=== PATIENT | female | born 1955 | race Two or more races ===

== ENCOUNTER 2021-01-17 10:47 | Inpatient (IN) | payer OTHER, MEDICAID ==
[~2021-01-17] VITALS: Ht 154.9 cm; Wt 88.6 kg
[2021-01-17] MEDS ORDERED: VANCOMYCIN 1,500 MG in D5W 5% 250 ML IV ONE (13:30)
[2021-01-17] MEDS ORDERED: CEFEPIME 2 GM in SODIUM CHL 0.9% 50 ML IV ONE (13:45)
[2021-01-17 13:47] LABS: Basophils # (auto) 0.1 10 ^3/uL (0-0.2); Basophils % (auto) 0.7 % (0.0-2.0); Eosinophils # (auto) 0.1 10 ^3/uL (0-0.8); Eosinophils % (auto) 1.4 % (0.0-7.0); Hematocrit 37.7 % (36.0-46.0); Hemoglobin 13.1 g/dL (12.2-16.2); Lymphocytes # (auto) 1.6 10 ^3/uL (0.4-5.4); Lymphocytes % (auto) 21.9 % (10.0-50.0); Mean Corpuscular Hemoglobin 31.3 pg (28.0-32.0); Mean Corpuscular Hgb Conc. 34.7 g/dL (32.0-36.0); Mean Corpuscular Volume 90.2 fL (80.0-100.0); Monocytes # (auto) 0.5 10 ^3/uL (0-1.3); Monocytes % (auto) 6.7 % (0.0-12.0); Neutrophils # (auto) 5.1 10 ^3/uL (1.6-8.6); Neutrophils % (auto) 69.3 % (37.0-80.0); Nucleated Red Blood Cells % 0.1 %; Red Blood Cells 4.19 10^6/uL (4.0-5.20); Red Cell Distribution Width 13.6 % (11.8-14.3); White Blood Cell 7.4 10^3/uL (4.4-10.8)
[2021-01-17 14:07] LABS: Albumin 3.7 g/dL (3.4-5.0); Calcium 9.2 mg/dL (8.5-10.1); Potassium 3.5 mmol/L (3.5-5.1)
[2021-01-17 14:10] LABS: BUN/Creatinine Ratio 18.5; Bilirubin, Total 0.4 mg/dL (0.2-1.0); Total Protein 8.6 g/dL (6.4-8.2)
[2021-01-17] MEDS ORDERED: ACETAMINOPHEN 325 MG TAB PO PRN (16:00)
[2021-01-17] MEDS ORDERED: DOCUSATE SOD 100 MG CAP PO PRN (16:00)
[2021-01-17] MEDS ORDERED: VANCOMYCIN PER PHARMACY 0 MG IV SCH (16:00)
[2021-01-17] MEDS ORDERED: NITROGLYCERIN 0.4 MG SL TAB SL PRN (16:00)
[2021-01-17] MEDS ORDERED: MORPHINE SULFATE 4 MG/ML SYR/VIAL IV PRN (16:00)
[2021-01-17] MEDS ORDERED: MORPHINE SULFATE INJECTION 2 MG/ML SYRG IV PRN (16:00)
[2021-01-17] MEDS: HYDROcodone-ACET 5/325MG TAB PO PRN (18:03)
[2021-01-17] MEDS: SODIUM CHLORIDE 0.9% 1,000 ML IV SCH (19:05)
[2021-01-18] MEDS: SODIUM CHLORIDE 0.9% 1,000 ML IV SCH ×4 (04:59→22:01)
[2021-01-18] MEDS: ASCORBIC ACID 500 MG TAB PO SCH ×3 (05:18→21:20)
[2021-01-18] MEDS: VANCOMYCIN 1GM/250ML 250 ML IV SCH ×2 (05:19→17:19)
[2021-01-18 07:50] LABS: Basophils # (auto) 0 10 ^3/uL (0-0.2); Basophils % (auto) 0.6 % (0.0-2.0); Eosinophils # (auto) 0.1 10 ^3/uL (0-0.8); Eosinophils % (auto) 1.8 % (0.0-7.0); Hematocrit 35.9 % (36.0-46.0); Hemoglobin 12.4 g/dL (12.2-16.2); Lymphocytes # (auto) 1.9 10 ^3/uL (0.4-5.4); Lymphocytes % (auto) 28.7 % (10.0-50.0); Mean Corpuscular Hemoglobin 31.4 pg (28.0-32.0); Mean Corpuscular Hgb Conc. 34.6 g/dL (32.0-36.0); Mean Corpuscular Volume 90.9 fL (80.0-100.0); Monocytes # (auto) 0.6 10 ^3/uL (0-1.3); Monocytes % (auto) 9.3 % (0.0-12.0); Neutrophils % (auto) 59.6 % (37.0-80.0); Nucleated Red Blood Cells % 0.1 %; Red Blood Cells 3.95 10^6/uL (4.0-5.20); Red Cell Distribution Width 13.3 % (11.8-14.3); White Blood Cell 6.8 10^3/uL (4.4-10.8)
[2021-01-18 08:02] LABS: Albumin 3.1 g/dL (3.4-5.0); BUN/Creatinine Ratio 17.4; Potassium 3.8 mmol/L (3.5-5.1)
[2021-01-18 08:13] LABS: Bilirubin, Total 0.4 mg/dL (0.2-1.0); Total Protein 7.4 g/dL (6.4-8.2)
[2021-01-18] MEDS: MULTIPLE VITAMIN TAB PO SCH (09:58)
[2021-01-18] MEDS: ZINC SULFATE 220mg CAP or TAB PO SCH (09:58)
[2021-01-18] MEDS: PANTOPRAZOLE 40 MG/10 ML VIAL INJ IV SCH (09:58)
[2021-01-18] MEDS: ENOXAPARIN SOD 40 MG/0.4 ML SYRINGE SC SCH (09:59)
[2021-01-18 11:09] LABS: Urine Bacteria NONE SEEN /hpf (None Seen); Urine Blood Negative /uL (Negative); Urine Specific Gravity 1.007 (1.001-1.035); Urine WBC 1 /hpf (0 - 5)
[2021-01-18] MEDS ORDERED: DEXTROSE (50%) 50ML SYRG IV PRN (17:15)
[2021-01-18] MEDS ORDERED: guaiFENesin-CODEINE Liq 5 ML UD PO PRN (17:15)
[2021-01-18] MEDS: HYDROcodone-ACET 5/325MG TAB PO PRN (17:55)
[2021-01-18] MEDS: InsuLIN REG 1unit/0.01ml Soln (100units/ml) SC SCH (21:19)
[2021-01-18] MEDS: ACCU-CHEK COMFORT CURVE STRIP VI SCH (21:20)
[2021-01-18] MEDS: TEMAZEPAM 15 MG CAP PO PRN (23:15)
[2021-01-19] MEDS: VANCOMYCIN 1GM/250ML 250 ML IV SCH ×2 (05:00→18:20)
[2021-01-19] MEDS: ACCU-CHEK COMFORT CURVE STRIP VI SCH ×4 (06:30→21:04)
[2021-01-19] MEDS: InsuLIN REG 1unit/0.01ml Soln (100units/ml) SC SCH ×5 (06:44→21:05)
[2021-01-19 07:18] LABS: Cholesterol 126 mg/dL (< 200); HDL Cholesterol 32 mg/dL (40-59); LDL Cholesterol 77 mg/dL (< 100); Triglycerides 143 mg/dL (< 150)
[2021-01-19] MEDS: ZINC SULFATE 220mg CAP or TAB PO SCH (10:18)
[2021-01-19] MEDS: SODIUM CHLORIDE 0.9% 1,000 ML IV SCH ×2 (10:18→18:00)
[2021-01-19] MEDS: PANTOPRAZOLE 40 MG/10 ML VIAL INJ IV SCH (10:18)
[2021-01-19] MEDS: ASCORBIC ACID 500 MG TAB PO SCH ×2 (10:19→20:54)
[2021-01-19] MEDS: MULTIPLE VITAMIN TAB PO SCH (10:19)
[2021-01-19] MEDS: ENOXAPARIN SOD 40 MG/0.4 ML SYRINGE SC SCH (10:19)
[2021-01-19 13:00] VITALS: BP 142/77
[2021-01-19] MEDS: metroNIDAZOLE 500 MG TAB PO SCH ×2 (15:00→20:54)
[2021-01-19 17:00] VITALS: BP 153/69
[2021-01-19] MEDS ORDERED: ASPI-543 PO (19:28)
[2021-01-19] MEDS ORDERED: GABA300C10 PO (19:28)
[2021-01-19] MEDS ORDERED: SIMV-8 PO (19:28)
[2021-01-19] MEDS ORDERED: LOSA-69 PO (19:28)
[2021-01-19] MEDS ORDERED: CELE100C82 PO (19:28)
[2021-01-19] MEDS ORDERED: CEPH500C PO (19:28)
[2021-01-19] MEDS ORDERED: METF-370 PO (19:28)
[2021-01-19] MEDS ORDERED: TRIATAB3 PO (19:28)
[2021-01-19] MEDS ORDERED: TRAZ50TA2 PO (19:28)
[2021-01-19] MEDS: TEMAZEPAM 15 MG CAP PO PRN (20:54)
[2021-01-19 22:00] VITALS: BP 133/56
[2021-01-20] MEDS: SODIUM CHLORIDE 0.9% 1,000 ML IV SCH ×3 (02:20→22:26)
[2021-01-20 05:00] VITALS: BP 135/56
[2021-01-20] MEDS: VANCOMYCIN 1GM/250ML 250 ML IV SCH ×2 (05:38→15:38)
[2021-01-20] MEDS: ACCU-CHEK COMFORT CURVE STRIP VI SCH ×4 (05:40→22:00)
[2021-01-20] MEDS: metroNIDAZOLE 500 MG TAB PO SCH ×3 (06:20→22:00)
[2021-01-20] MEDS: InsuLIN REG 1unit/0.01ml Soln (100units/ml) SC SCH ×4 (06:31→22:45)
[2021-01-20 09:00] VITALS: BP 137/61
[2021-01-20] MEDS: cefTRIAXone 1GM/50ML D5W 50 ML IV SCH (09:45)
[2021-01-20] MEDS: PANTOPRAZOLE 40 MG/10 ML VIAL INJ IV SCH (09:45)
[2021-01-20] MEDS: ENOXAPARIN SOD 40 MG/0.4 ML SYRINGE SC SCH (09:46)
[2021-01-20] MEDS: ASCORBIC ACID 500 MG TAB PO SCH ×2 (09:46→22:00)
[2021-01-20] MEDS: MULTIPLE VITAMIN TAB PO SCH (09:46)
[2021-01-20] MEDS: ZINC SULFATE 220mg CAP or TAB PO SCH (09:46)
[2021-01-20 12:49] VITALS: BP 152/61
[2021-01-20 16:22] VITALS: BP 175/70
[2021-01-20 16:40] VITALS: BP 154/70
[2021-01-20 22:00] VITALS: BP 134/91
[2021-01-20] MEDS: ATORVASTATIN 20 MG TAB PO SCH (22:00)
[2021-01-20] MEDS: TEMAZEPAM 15 MG CAP PO PRN (22:01)
[2021-01-21] MEDS: VANCOMYCIN 1GM/250ML 250 ML IV SCH ×3 (01:19→21:08)
[2021-01-21] MEDS: SODIUM CHLORIDE 0.9% 1,000 ML IV SCH ×3 (03:20→20:00)
[2021-01-21 05:00] VITALS: BP 180/83
[2021-01-21 05:35] LABS: Basophils # (auto) 0.1 10 ^3/uL (0-0.2); Basophils % (auto) 0.9 % (0.0-2.0); Eosinophils # (auto) 0.4 10 ^3/uL (0-0.8); Eosinophils % (auto) 5.2 % (0.0-7.0); Hematocrit 36.4 % (36.0-46.0); Hemoglobin 12.6 g/dL (12.2-16.2); Lymphocytes # (auto) 2.3 10 ^3/uL (0.4-5.4); Lymphocytes % (auto) 29.7 % (10.0-50.0); Mean Corpuscular Hemoglobin 31.1 pg (28.0-32.0); Mean Corpuscular Hgb Conc. 34.6 g/dL (32.0-36.0); Monocytes # (auto) 0.8 10 ^3/uL (0-1.3); Monocytes % (auto) 10.4 % (0.0-12.0); Neutrophils # (auto) 4.2 10 ^3/uL (1.6-8.6); Neutrophils % (auto) 53.8 % (37.0-80.0); Nucleated Red Blood Cells % 0.2 %; Red Blood Cells 4.05 10^6/uL (4.0-5.20); White Blood Cell 7.7 10^3/uL (4.4-10.8)
[2021-01-21] MEDS: metroNIDAZOLE 500 MG TAB PO SCH ×3 (05:43→21:09)
[2021-01-21 05:53] LABS: INR 1.02 (0.9-1.15); Partial Thromboplastin Time 23.6 sec (23.6-33.0)
[2021-01-21 05:55] LABS: Albumin 3.2 g/dL (3.4-5.0); Calcium 9.6 mg/dL (8.5-10.1); Potassium 3.8 mmol/L (3.5-5.1)
[2021-01-21 05:58] LABS: BUN/Creatinine Ratio 14.8; Bilirubin, Total 0.3 mg/dL (0.2-1.0); Total Protein 7.6 g/dL (6.4-8.2)
[2021-01-21] MEDS: ACCU-CHEK COMFORT CURVE STRIP VI SCH ×4 (06:23→21:10)
[2021-01-21] MEDS: InsuLIN REG 1unit/0.01ml Soln (100units/ml) SC SCH ×4 (06:38→21:27)
[2021-01-21] MEDS ORDERED: hydrALAZINE HCL 20 MG/ML VL IV PRN (07:15)
[2021-01-21 08:50] VITALS: BP 124/68
[2021-01-21] MEDS: GABAPENTIN 300 MG CAP PO SCH (10:00)
[2021-01-21] MEDS: ENOXAPARIN SOD 40 MG/0.4 ML SYRINGE SC SCH (10:00)
[2021-01-21] MEDS: cefTRIAXone 1GM/50ML D5W 50 ML IV SCH ×2 (10:15→11:15)
[2021-01-21] MEDS: PANTOPRAZOLE 40 MG/10 ML VIAL INJ IV SCH (10:25)
[2021-01-21] MEDS: LOSARTAN POTASSIUM 50 MG TAB PO SCH (10:25)
[2021-01-21] MEDS: ZINC SULFATE 220mg CAP or TAB PO SCH (10:25)
[2021-01-21] MEDS: CELECOXIB 100 MG CAP PO SCH (10:25)
[2021-01-21] MEDS: ASCORBIC ACID 500 MG TAB PO SCH ×2 (10:26→21:09)
[2021-01-21] MEDS: MULTIPLE VITAMIN TAB PO SCH (10:26)
[2021-01-21] MEDS ORDERED: LORazepam 2MG/ML-1ML VIAL IV PRN (12:30)
[2021-01-21] MEDS ORDERED: MORPHINE SULFATE 4 MG/ML SYR/VIAL IV PRN (12:30)
[2021-01-21] MEDS ORDERED: fentaNYL CITRATE 100 MCG/2 ML VL ONE (12:41)
[2021-01-21] MEDS ORDERED: PROPOFOL 10 MG/ML 20 ML IV ONE (12:42)
[2021-01-21] MEDS ORDERED: ONDANSETRON HCL 4 MG/2 ML VIAL ONE (12:42)
[2021-01-21] MEDS ORDERED: MIDAZOLAM HCL 2MG/2ML 2ml VIAL (1mg/ml) ONE (12:42)
[2021-01-21] MEDS ORDERED: SODIUM CHLORIDE LOCK 10 ML ONE (12:42)
[2021-01-21 13:00] VITALS: BP 100/73
[2021-01-21] MEDS ORDERED: LIDOCAINE 1% HCL (LOCAL ANESTH.) INJ 20ML MDV ONE (13:22)
[2021-01-21] MEDS ORDERED: BUPIVACAINE HCL 0 ML ONE (13:22)
[2021-01-21 17:00] VITALS: BP 143/56
[2021-01-21] MEDS: ATORVASTATIN 20 MG TAB PO SCH (21:09)
[2021-01-21] MEDS: TEMAZEPAM 15 MG CAP PO PRN (21:25)
[2021-01-21 22:00] VITALS: BP 145/69
[2021-01-22] MEDS: SODIUM CHLORIDE 0.9% 1,000 ML IV SCH ×2 (04:20→11:40)
[2021-01-22 05:00] VITALS: BP 139/75
[2021-01-22] MEDS: metroNIDAZOLE 500 MG TAB PO SCH ×3 (06:21→22:03)
[2021-01-22] MEDS: ACCU-CHEK COMFORT CURVE STRIP VI SCH ×4 (06:21→22:04)
[2021-01-22] MEDS: InsuLIN REG 1unit/0.01ml Soln (100units/ml) SC SCH ×4 (06:43→22:14)
[2021-01-22] MEDS: VANCOMYCIN 1GM/250ML 250 ML IV SCH ×2 (06:48→17:00)
[2021-01-22 08:47] VITALS: BP 142/70
[2021-01-22] MEDS: PANTOPRAZOLE 40 MG/10 ML VIAL INJ IV SCH (09:55)
[2021-01-22] MEDS: ZINC SULFATE 220mg CAP or TAB PO SCH (09:55)
[2021-01-22] MEDS: CELECOXIB 100 MG CAP PO SCH (09:55)
[2021-01-22] MEDS: GABAPENTIN 300 MG CAP PO SCH (09:56)
[2021-01-22] MEDS: ENOXAPARIN SOD 40 MG/0.4 ML SYRINGE SC SCH (09:56)
[2021-01-22] MEDS: LOSARTAN POTASSIUM 50 MG TAB PO SCH (09:56)
[2021-01-22] MEDS: MULTIPLE VITAMIN TAB PO SCH (09:56)
[2021-01-22] MEDS: ASCORBIC ACID 500 MG TAB PO SCH ×2 (09:56→22:04)
[2021-01-22 12:42] VITALS: BP 149/76
[2021-01-22 17:00] VITALS: BP 161/64
[2021-01-22 21:49] VITALS: BP 157/54
[2021-01-22] MEDS: ATORVASTATIN 20 MG TAB PO SCH (22:04)
[2021-01-22] MEDS: TEMAZEPAM 15 MG CAP PO PRN (22:12)
[2021-01-23] MEDS: VANCOMYCIN 1GM/250ML 250 ML IV SCH ×3 (02:54→15:48)
[2021-01-23] MEDS: SODIUM CHLORIDE 0.9% 1,000 ML IV SCH ×4 (04:43→22:33)
[2021-01-23 05:30] VITALS: BP 159/70
[2021-01-23] MEDS: metroNIDAZOLE 500 MG TAB PO SCH ×3 (06:56→22:34)
[2021-01-23] MEDS: InsuLIN REG 1unit/0.01ml Soln (100units/ml) SC SCH ×4 (06:58→22:35)
[2021-01-23] MEDS: ACCU-CHEK COMFORT CURVE STRIP VI SCH ×4 (07:01→22:34)
[2021-01-23 09:00] VITALS: BP 166/87
[2021-01-23] MEDS: cefTRIAXone 1GM/50ML D5W 50 ML IV SCH ×5 (09:08→15:47)
[2021-01-23] MEDS: ZINC SULFATE 220mg CAP or TAB PO SCH (10:48)
[2021-01-23] MEDS: PANTOPRAZOLE 40 MG/10 ML VIAL INJ IV SCH (10:48)
[2021-01-23] MEDS: LOSARTAN POTASSIUM 50 MG TAB PO SCH (10:49)
[2021-01-23] MEDS: CELECOXIB 100 MG CAP PO SCH (10:49)
[2021-01-23] MEDS: MULTIPLE VITAMIN TAB PO SCH (10:50)
[2021-01-23] MEDS: ASCORBIC ACID 500 MG TAB PO SCH ×2 (10:50→22:34)
[2021-01-23] MEDS: ENOXAPARIN SOD 40 MG/0.4 ML SYRINGE SC SCH (10:50)
[2021-01-23] MEDS: GABAPENTIN 300 MG CAP PO SCH (10:50)
[2021-01-23] MEDS: DAKINS QUARTER STR 0.125% (NaHypochlorite) 473 ML TOPICAL SOL TOP SCH (10:51)
[2021-01-23 13:00] VITALS: BP 165/82
[2021-01-23] MEDS ORDERED: LIDOCAINE 1% (LOCAL ANESTH.) PF 5ml SDV ID ONE (16:30)
[2021-01-23 16:37] VITALS: BP 144/64
[2021-01-23 21:55] VITALS: BP 173/74
[2021-01-23] MEDS: SODIUM CHLOR 0.9% PF (SALINE LOCK) 10ML VIAL/SYR IV SCH (22:34)
[2021-01-23] MEDS: ATORVASTATIN 20 MG TAB PO SCH (22:34)
[2021-01-24 05:30] VITALS: BP 152/88
[2021-01-24] MEDS: SODIUM CHLORIDE 0.9% 1,000 ML IV SCH ×3 (06:20→21:54)
[2021-01-24] MEDS: metroNIDAZOLE 500 MG TAB PO SCH ×3 (06:53→21:54)
[2021-01-24] MEDS: ACCU-CHEK COMFORT CURVE STRIP VI SCH ×4 (06:53→21:37)
[2021-01-24] MEDS: InsuLIN REG 1unit/0.01ml Soln (100units/ml) SC SCH ×4 (06:59→21:38)
[2021-01-24 09:00] VITALS: BP 158/83
[2021-01-24] MEDS: VANCOMYCIN 1GM/250ML 250 ML IV SCH ×2 (09:17→18:53)
[2021-01-24] MEDS: PANTOPRAZOLE 40 MG/10 ML VIAL INJ IV SCH (09:17)
[2021-01-24] MEDS: SODIUM CHLOR 0.9% PF (SALINE LOCK) 10ML VIAL/SYR IV SCH ×2 (09:18→21:53)
[2021-01-24] MEDS: ZINC SULFATE 220mg CAP or TAB PO SCH (09:18)
[2021-01-24] MEDS: CELECOXIB 100 MG CAP PO SCH (09:18)
[2021-01-24] MEDS: ASCORBIC ACID 500 MG TAB PO SCH ×2 (09:22→21:54)
[2021-01-24] MEDS: LOSARTAN POTASSIUM 50 MG TAB PO SCH (09:22)
[2021-01-24] MEDS: ENOXAPARIN SOD 40 MG/0.4 ML SYRINGE SC SCH (09:22)
[2021-01-24] MEDS: GABAPENTIN 300 MG CAP PO SCH (09:22)
[2021-01-24] MEDS: MULTIPLE VITAMIN TAB PO SCH (09:22)
[2021-01-24] MEDS: DAKINS QUARTER STR 0.125% (NaHypochlorite) 473 ML TOPICAL SOL TOP SCH (09:23)
[2021-01-24 13:00] VITALS: BP 149/79
[2021-01-24 17:00] VITALS: BP 147/79
[2021-01-24] MEDS: ATORVASTATIN 20 MG TAB PO SCH (21:54)
[2021-01-24 22:00] VITALS: BP 170/71
[2021-01-25 05:00] VITALS: BP 167/80
[2021-01-25] MEDS: VANCOMYCIN 1GM/250ML 250 ML IV SCH ×2 (05:25→14:57)
[2021-01-25] MEDS: metroNIDAZOLE 500 MG TAB PO SCH ×3 (06:30→21:37)
[2021-01-25] MEDS: SODIUM CHLORIDE 0.9% 1,000 ML IV SCH ×2 (06:30→15:40)
[2021-01-25] MEDS: ACCU-CHEK COMFORT CURVE STRIP VI SCH ×4 (06:49→22:03)
[2021-01-25] MEDS: InsuLIN REG 1unit/0.01ml Soln (100units/ml) SC SCH ×4 (06:52→22:01)
[2021-01-25 08:10] VITALS: BP 155/77
[2021-01-25 09:00] VITALS: BP 155/77
[2021-01-25] MEDS: SODIUM CHLOR 0.9% PF (SALINE LOCK) 10ML VIAL/SYR IV SCH ×2 (10:00→21:37)
[2021-01-25] MEDS: CELECOXIB 100 MG CAP PO SCH (10:00)
[2021-01-25] MEDS: cefTRIAXone 1GM/50ML D5W 50 ML IV SCH (10:39)
[2021-01-25] MEDS: ZINC SULFATE 220mg CAP or TAB PO SCH (10:39)
[2021-01-25] MEDS: MULTIPLE VITAMIN TAB PO SCH (10:39)
[2021-01-25] MEDS: PANTOPRAZOLE 40 MG/10 ML VIAL INJ IV SCH (10:39)
[2021-01-25] MEDS: ASCORBIC ACID 500 MG TAB PO SCH ×2 (10:40→21:38)
[2021-01-25] MEDS: LOSARTAN POTASSIUM 50 MG TAB PO SCH (10:40)
[2021-01-25] MEDS: DAKINS QUARTER STR 0.125% (NaHypochlorite) 473 ML TOPICAL SOL TOP SCH (10:41)
[2021-01-25] MEDS: GABAPENTIN 300 MG CAP PO SCH (10:41)
[2021-01-25] MEDS: ONDANSETRON HCL 4 MG/2 ML VIAL IV PRN (10:53)
[2021-01-25] MEDS: ENOXAPARIN SOD 40 MG/0.4 ML SYRINGE SC SCH (11:26)
[2021-01-25 12:30] VITALS: BP 159/72
[2021-01-25 17:00] VITALS: BP 161/73
[2021-01-25] MEDS: metFORMIN HYDROCHLORIDE 500 MG TAB PO SCH (18:11)
[2021-01-25] MEDS: traZODone HCL 50 MG TAB PO SCH (21:37)
[2021-01-25] MEDS: ATORVASTATIN 20 MG TAB PO SCH (21:38)
[2021-01-25 22:00] VITALS: BP 145/84
[2021-01-25] MEDS: INSULIN LANTUS (GLARGINE) 1 /0.01ml (100units/ml) SC SCH (22:01)
[2021-01-25] MEDS: TEMAZEPAM 15 MG CAP PO PRN (22:03)
[2021-01-26] MEDS: VANCOMYCIN 1GM/250ML 250 ML IV SCH (00:51)
[2021-01-26 05:00] VITALS: BP 140/70
[2021-01-26] MEDS: metroNIDAZOLE 500 MG TAB PO SCH ×3 (06:00→21:30)
[2021-01-26 06:25] LABS: Basophils # (auto) 0.1 10 ^3/uL (0-0.2); Basophils % (auto) 0.9 % (0.0-2.0); Eosinophils # (auto) 0.3 10 ^3/uL (0-0.8); Eosinophils % (auto) 3.9 % (0.0-7.0); Hematocrit 34.9 % (36.0-46.0); Hemoglobin 12.2 g/dL (12.2-16.2); Lymphocytes # (auto) 2.4 10 ^3/uL (0.4-5.4); Lymphocytes % (auto) 31.7 % (10.0-50.0); Mean Corpuscular Hemoglobin 31.2 pg (28.0-32.0); Mean Corpuscular Hgb Conc. 34.9 g/dL (32.0-36.0); Mean Corpuscular Volume 89.4 fL (80.0-100.0); Monocytes # (auto) 0.8 10 ^3/uL (0-1.3); Monocytes % (auto) 9.9 % (0.0-12.0); Neutrophils # (auto) 4.1 10 ^3/uL (1.6-8.6); Neutrophils % (auto) 53.6 % (37.0-80.0); Nucleated Red Blood Cells % 0.1 %; Red Cell Distribution Width 13.1 % (11.8-14.3); White Blood Cell 7.7 10^3/uL (4.4-10.8)
[2021-01-26 06:31] LABS: Potassium 3.3 mmol/L (3.5-5.1)
[2021-01-26 06:41] LABS: Albumin 2.9 g/dL (3.4-5.0); Bilirubin, Total 0.3 mg/dL (0.2-1.0); Calcium 8.9 mg/dL (8.5-10.1); Total Protein 6.9 g/dL (6.4-8.2)
[2021-01-26] MEDS: ACCU-CHEK COMFORT CURVE STRIP VI SCH ×4 (06:46→21:17)
[2021-01-26] MEDS: InsuLIN REG 1unit/0.01ml Soln (100units/ml) SC SCH ×4 (06:48→21:19)
[2021-01-26] MEDS: metFORMIN HYDROCHLORIDE 500 MG TAB PO SCH ×2 (06:52→18:00)
[2021-01-26 08:56] VITALS: BP 150/68
[2021-01-26] MEDS: PANTOPRAZOLE 40 MG/10 ML VIAL INJ IV SCH (09:33)
[2021-01-26] MEDS: cefTRIAXone 1GM/50ML D5W 50 ML IV SCH (09:33)
[2021-01-26] MEDS: SODIUM CHLOR 0.9% PF (SALINE LOCK) 10ML VIAL/SYR IV SCH ×2 (09:33→21:30)
[2021-01-26] MEDS: CELECOXIB 100 MG CAP PO SCH (09:34)
[2021-01-26] MEDS: ZINC SULFATE 220mg CAP or TAB PO SCH (09:34)
[2021-01-26] MEDS: LOSARTAN POTASSIUM 50 MG TAB PO SCH (09:35)
[2021-01-26] MEDS: MULTIPLE VITAMIN TAB PO SCH (09:35)
[2021-01-26] MEDS: GABAPENTIN 300 MG CAP PO SCH (09:35)
[2021-01-26] MEDS: ASCORBIC ACID 500 MG TAB PO SCH ×2 (09:35→21:30)
[2021-01-26] MEDS: ENOXAPARIN SOD 40 MG/0.4 ML SYRINGE SC SCH (09:36)
[2021-01-26] MEDS: DAKINS QUARTER STR 0.125% (NaHypochlorite) 473 ML TOPICAL SOL TOP SCH (10:00)
[2021-01-26] MEDS ORDERED: AMPICILLIN & SULBACTAM SODIUM 3 GM in SODIUM CHL 0.9% 100 ML IV SCH (12:00)
[2021-01-26 13:00] VITALS: BP 147/63
[2021-01-26] MEDS: SODIUM CHLORIDE 0.9% IV SCH (16:08)
[2021-01-26] MEDS: AMPICILLIN IV SCH (16:08)
[2021-01-26] MEDS: SULBACTAM SODIUM IV SCH (16:08)
[2021-01-26 16:52] VITALS: BP 125/60
[2021-01-26] MEDS ORDERED: metFORMIN HYDROCHLORIDE 500 MG TAB ONE (18:31)
[2021-01-26] MEDS ORDERED: oxyTOCIN 10 UNIT/ML 10ML VIAL ONE (18:38)
[2021-01-26] MEDS ORDERED: LIDOCAINE 2% (LOCAL ANESTH.) PF 5ml SDV ONE (19:03)
[2021-01-26] MEDS ORDERED: KETAMINE HCL 10 ML ONE (19:05)
[2021-01-26] MEDS ORDERED: MEPERIDINE HCL (25 MG/ML) 1ML VIAL ONE (19:28)
[2021-01-26] MEDS: INSULIN LANTUS (GLARGINE) 1 /0.01ml (100units/ml) SC SCH (21:19)
[2021-01-26] MEDS: ATORVASTATIN 20 MG TAB PO SCH (21:30)
[2021-01-26] MEDS: TEMAZEPAM 15 MG CAP PO PRN (21:30)
[2021-01-26] MEDS: traZODone HCL 50 MG TAB PO SCH (21:30)
[2021-01-26 22:00] VITALS: BP 154/69
[2021-01-27 05:35] VITALS: BP 146/68
[2021-01-27] MEDS: InsuLIN REG 1unit/0.01ml Soln (100units/ml) SC SCH ×2 (06:15→11:30)
[2021-01-27] MEDS: metFORMIN HYDROCHLORIDE 500 MG TAB PO SCH (06:16)
[2021-01-27] MEDS: metroNIDAZOLE 500 MG TAB PO SCH ×2 (06:17→14:00)
[2021-01-27] MEDS: ACCU-CHEK COMFORT CURVE STRIP VI SCH ×2 (06:17→11:30)
[2021-01-27 09:00] VITALS: BP 153/70
[2021-01-27] MEDS: ONDANSETRON HCL 4 MG/2 ML VIAL IV PRN (09:53)
[2021-01-27] MEDS ORDERED: CELECOXIB 100 MG CAP PO SCH (10:00)
[2021-01-27] MEDS: SODIUM CHLOR 0.9% PF (SALINE LOCK) 10ML VIAL/SYR IV SCH (10:24)
[2021-01-27] MEDS: PANTOPRAZOLE 40 MG/10 ML VIAL INJ IV SCH (10:24)
[2021-01-27] MEDS: ZINC SULFATE 220mg CAP or TAB PO SCH (10:24)
[2021-01-27] MEDS: LOSARTAN POTASSIUM 50 MG TAB PO SCH (10:25)
[2021-01-27] MEDS: GABAPENTIN 300 MG CAP PO SCH (10:26)
[2021-01-27] MEDS: MULTIPLE VITAMIN TAB PO SCH (10:26)
[2021-01-27] MEDS: DAKINS QUARTER STR 0.125% (NaHypochlorite) 473 ML TOPICAL SOL TOP SCH (10:27)
[2021-01-27] MEDS: ENOXAPARIN SOD 40 MG/0.4 ML SYRINGE SC SCH (10:27)
[2021-01-27] MEDS: ASCORBIC ACID 500 MG TAB PO SCH (10:27)
[2021-01-27 13:00] VITALS: BP 158/73
[2021-01-27] MEDS: SULBACTAM SODIUM IV SCH (13:00)
[2021-01-27] MEDS: SODIUM CHLORIDE 0.9% IV SCH (13:00)
[2021-01-27] MEDS: AMPICILLIN IV SCH (13:00)
[2021-01-27 15:40] VITALS: BP 154/77
== END 2021-01-27 17:24 | disposition home health service (06) | DRG 617 ==
LOC: ER 10:47 → TELE 15:52 → TELE-WESTW 01-19 08:51
PROVIDERS: ADMIT Nurse Practitioner; ATTEND Nurse Practitioner
PROC: 0Y6T0Z0 Detachment at Right 3rd Toe, Complete, Open Approach (ICD-10-PCS; principal; 2021-01-21 13:49)
PROC: 05HB33Z Insertion of Infusion Device into Right Basilic Vein, Percutaneous Approach (ICD-10-PCS; 2021-01-23)
PROC: B54MZZA Ultrasonography of Right Upper Extremity Veins, Guidance (ICD-10-PCS; 2021-01-23)
DX: E11.69 Type 2 diabetes mellitus with other specified complication (principal); N39.0 Urinary tract infection, site not specified; M86.8X7 Other osteomyelitis, ankle and foot; E11.621 Type 2 diabetes mellitus with foot ulcer; E66.9 Obesity, unspecified; E11.51 Type 2 diabetes mellitus with diabetic peripheral angiopathy without gangrene; Z20.822 Contact with and (suspected) exposure to COVID-19; F17.200 Nicotine dependence, unspecified, uncomplicated; F41.9 Anxiety disorder, unspecified; M54.5 Low back pain; L08.89 Other specified local infections of the skin and subcutaneous tissue; L97.519 Non-pressure chronic ulcer of other part of right foot with unspecified severity; Z68.36 Body mass index [BMI] 36.0-36.9, adult; Z71.6 Tobacco abuse counseling
CPT/HCPCS: 36415; 36569; 71045; 73620; 73660; 73718; 80053; 80061; 80202; 81001; 82565; 82962; 83036; 83605; 83880; 84443; 84484; 85025; 85610; 85652; 85730; 86850; 86900; 86901; 87040; 87070; 87075; 87077; 87186; 87205; 87426; 93306; 93926; 96365; 96367; 96375; C9113; G0378; J0696; J1815; J2001; J2250; J2405; J2590; J2704; J3490; J7060

== ENCOUNTER 2021-06-30 20:32 | Emergency (ER) | payer OTHER, MEDICAID ==
[~2021-06-30] VITALS: Ht 157.5 cm; Wt 86.2 kg
[~2021-06-30 20:32] MED LIST: ASPI-543 PO; CELE100C82 PO; CEPH500C PO; GABA300C10 PO; LOSA-69 PO; METF-370 PO; SIMV-8 PO; TRAZ50TA2 PO; TRIATAB3 PO
[2021-06-30 20:34] VITALS: BP 170/74
[2021-07-01] MEDS ORDERED: TETANUS-DIPTH-ACEL PERTUSSIS 0.5ML SYR Tdap IM ONE (01:30)
== END 2021-07-01 02:01 | disposition home or self-care (01) ==
LOC: ER 20:37
DX: S61.217A Laceration without foreign body of left little finger without damage to nail, initial encounter (principal); E11.9 Type 2 diabetes mellitus without complications; Z79.82 Long term (current) use of aspirin; Z79.899 Other long term (current) drug therapy; W26.8XXA Contact with other sharp object(s), not elsewhere classified, initial encounter; Y93.89 Activity, other specified; Y92.89 Other specified places as the place of occurrence of the external cause; Y99.8 Other external cause status
CPT/HCPCS: 12001; 90471; 90715; 99283; J2001

== ENCOUNTER 2021-07-22 21:12 | Emergency (ER) | payer OTHER, MEDICAID ==
[~2021-07-22] VITALS: Ht 157.5 cm; Wt 86.2 kg
[2021-07-22 21:57] LABS: Basophils # (auto) 0 10 ^3/uL (0-0.2); Basophils % (auto) 0.1 % (0.0-2.0); Eosinophils # (auto) 0.1 10 ^3/uL (0-0.8); Eosinophils % (auto) 0.9 % (0.0-7.0); Lymphocytes # (auto) 0.5 10 ^3/uL (0.4-5.4); Mean Corpuscular Hemoglobin 31.7 pg (28.0-32.0); Mean Corpuscular Volume 88.2 fL (80.0-100.0); Monocytes # (auto) 0.5 10 ^3/uL (0-1.3); Monocytes % (auto) 5.3 % (0.0-12.0); Neutrophils # (auto) 7.6 10 ^3/uL (1.6-8.6); Neutrophils % (auto) 87.7 % (37.0-80.0); Red Blood Cells 4.08 10^6/uL (4.0-5.20); Red Cell Distribution Width 13.3 % (11.8-14.3); White Blood Cell 8.7 10^3/uL (4.4-10.8)
[2021-07-22 22:02] LABS: Urine Bacteria NONE SEEN /hpf (None Seen); Urine Blood Negative /uL (Negative); Urine WBC 11 /hpf (0 - 5)
[2021-07-22 22:15] LABS: Albumin 3.6 g/dL (3.4-5.0); BUN/Creatinine Ratio 25.9; Calcium 8.1 mg/dL (8.5-10.1); Potassium 3.7 mmol/L (3.5-5.1)
[2021-07-22 22:19] LABS: Bilirubin, Total 0.4 mg/dL (0.2-1.0); Magnesium 2.1 mg/dL (1.6-2.6); Total Protein 7.6 g/dL (6.4-8.2)
[2021-07-23] MEDS ORDERED: SODIUM CHLORIDE 0.9% 1,000 ML IV ONE (00:30)
[2021-07-23] MEDS ORDERED: cefTRIAXone 1GM/50ML D5W 50 ML IV ONE (00:45)
[2021-07-23] MEDS ORDERED: CEFD300C2 PO (07:30)
[2021-07-23 08:02] VITALS: BP 96/44
== END 2021-07-23 09:09 | disposition home or self-care (01) ==
LOC: ER 21:12
DX: E11.621 Type 2 diabetes mellitus with foot ulcer (principal); L97.509 Non-pressure chronic ulcer of other part of unspecified foot with unspecified severity; M86.9 Osteomyelitis, unspecified
CPT/HCPCS: 36415; 80053; 81001; 83690; 83735; 85025; 87086; 96361; 96365; 99285; J0696; J7030

== ENCOUNTER 2022-07-27 14:14 | Emergency (ER) | payer OTHER, MEDICAID ==
[~2022-07-27] VITALS: Ht 160 cm; Wt 82.9 kg
[~2022-07-27 14:14] MED LIST changes: +CEFD300C2 PO
[2022-07-27 14:58] LABS: Urine Bacteria NONE SEEN /hpf (None Seen); Urine Blood Negative /uL (Negative); Urine Specific Gravity 1.011 (1.001-1.035); Urine WBC 1 /hpf (0 - 5)
[2022-07-27] MEDS ORDERED: IPRATROPIUM BROM 0.5 MG/2.5ML INH SOL NEB ONE (17:00)
[2022-07-27] MEDS ORDERED: ALBUTEROL SULF 2.5 MG/0.5ML(0.5%) NEB SOLN NEB ONE (17:00)
[2022-07-27] MEDS ORDERED: guaiFENesin-DM 100/10mg/5ml SYR PO ONE (17:45)
[2022-07-27] MEDS ORDERED: ACET1CAP14 PO (18:47)
[2022-07-27] MEDS ORDERED: PROM1SOL4 PO (18:47)
[2022-07-27] MEDS ORDERED: LEVO750T8 PO (18:47)
[2022-07-27] MEDS ORDERED: ALBU108A5 IN (18:49)
[2022-07-27 19:22] VITALS: BP 140/68
== END 2022-07-27 19:26 | disposition home or self-care (01) ==
LOC: ER 14:14
DX: J45.901 Unspecified asthma with (acute) exacerbation (principal); J06.9 Acute upper respiratory infection, unspecified; E11.9 Type 2 diabetes mellitus without complications; I10 Essential (primary) hypertension; Z20.822 Contact with and (suspected) exposure to COVID-19
CPT/HCPCS: 36415; 71045; 81001; 87426; 87804; 93005; 94640; 99285; J7644

== ENCOUNTER 2022-08-03 12:33 | Emergency (ER) | payer OTHER, MEDICAID ==
[~2022-08-03] VITALS: Ht 160 cm; Wt 182.8 kg
[~2022-08-03 12:33] MED LIST changes: +ACET1CAP14 PO; +ALBU108A5 IN; +LEVO750T8 PO; +PROM1SOL4 PO
[2022-08-03 12:48] VITALS: BP 144/54
[2022-08-03] MEDS ORDERED: ALBUTEROL SULF 2.5 MG/0.5ML(0.5%) NEB SOLN NEB ONE ×2 (14:45→16:45)
[2022-08-03] MEDS ORDERED: ACETAMINOPHEN 500 MG TAB PO ONE (14:45)
[2022-08-03] MEDS ORDERED: guaiFENesin-DM 100/10mg/5ml SYR PO ONE (14:45)
[2022-08-03] MEDS ORDERED: IPRATROPIUM BROM 0.5 MG/2.5ML INH SOL NEB ONE ×2 (14:45→16:45)
[2022-08-03 15:47] LABS: Basophils # (auto) 0 10 ^3/uL (0-0.2); Basophils % (auto) 0.5 % (0.0-2.0); Eosinophils # (auto) 0.2 10 ^3/uL (0-0.8); Eosinophils % (auto) 2.6 % (0.0-7.0); Hematocrit 36.2 % (36.0-46.0); Hemoglobin 12.7 g/dL (12.2-16.2); Lymphocytes # (auto) 2.1 10 ^3/uL (0.4-5.4); Lymphocytes % (auto) 23.9 % (10.0-50.0); Mean Corpuscular Hemoglobin 31.3 pg (28.0-32.0); Mean Corpuscular Hgb Conc. 35.1 g/dL (32.0-36.0); Mean Corpuscular Volume 89.1 fL (80.0-100.0); Monocytes # (auto) 0.8 10 ^3/uL (0-1.3); Monocytes % (auto) 9.4 % (0.0-12.0); Neutrophils # (auto) 5.6 10 ^3/uL (1.6-8.6); Neutrophils % (auto) 63.6 % (37.0-80.0); Nucleated Red Blood Cells % 0.1 %; Red Blood Cells 4.07 10^6/uL (4.0-5.20); Red Cell Distribution Width 13.1 % (11.8-14.3); White Blood Cell 8.8 10^3/uL (4.4-10.8)
[2022-08-03 16:06] LABS: Albumin 3.5 g/dL (3.4-5.0)
[2022-08-03 16:09] LABS: BUN/Creatinine Ratio 18.9 (10.0-20.0); Bilirubin, Total 0.3 mg/dL (0.2-1.0); Total Protein 7.6 g/dL (6.4-8.2)
[2022-08-03] MEDS ORDERED: DexAMETHasone SOD PHOS 10MG/1ML VIAL INJ IM ONE (16:45)
[2022-08-03] MEDS ORDERED: PROM2SYP2 PO (16:48)
[2022-08-03] MEDS ORDERED: [UNRECOGNIZED DRUG - CODE] PO (16:48)
[2022-08-03] MEDS ORDERED: PRED20TA2 PO (17:03)
== END 2022-08-03 17:28 | disposition home or self-care (01) ==
LOC: ER 12:33
DX: J40 Bronchitis, not specified as acute or chronic (principal); M54.6 Pain in thoracic spine; E11.9 Type 2 diabetes mellitus without complications; Z90.89 Acquired absence of other organs
CPT/HCPCS: 36415; 71045; 80053; 82962; 84484; 85025; 93005; 94640; 99285; J7644

== ENCOUNTER 2023-05-25 08:37 | Inpatient (IN) | payer OTHER ==
[~2023-05-25] VITALS: Ht 154.9 cm; Wt 81.4 kg
[~2023-05-25 08:37] MED LIST changes: +GABA-1250 PO; -GABA300C10 PO; -LOSA-69 PO; +LOSA50TA46 PO; +PRED20TA2 PO; +PROM2SYP2 PO; -SIMV-8 PO; +SIMV20TA20 PO; +TRAZ-227 PO; -TRAZ50TA2 PO; +[UNRECOGNIZED DRUG - CODE] PO
[2023-05-25 11:02] LABS: Basophils # (auto) 0.1 10 ^3/uL (0-0.2); Basophils % (auto) 0.8 % (0.0-2.0); Eosinophils # (auto) 0.3 10 ^3/uL (0-0.8); Eosinophils % (auto) 2.9 % (0.0-7.0); Hematocrit 38.5 % (36.0-46.0); Hemoglobin 12.9 g/dL (12.2-16.2); Lymphocytes # (auto) 2.9 10 ^3/uL (0.4-5.4); Lymphocytes % (auto) 32.7 % (10.0-50.0); Mean Corpuscular Hemoglobin 30.5 pg (28.0-32.0); Mean Corpuscular Hgb Conc. 33.6 g/dL (32.0-36.0); Mean Corpuscular Volume 90.9 fL (80.0-100.0); Monocytes # (auto) 0.6 10 ^3/uL (0-1.3); Monocytes % (auto) 6.7 % (0.0-12.0); Neutrophils # (auto) 5.1 10 ^3/uL (1.6-8.6); Neutrophils % (auto) 56.9 % (37.0-80.0); Nucleated Red Blood Cells % 0.1 %; Red Blood Cells 4.23 10^6/uL (4.0-5.20); Red Cell Distribution Width 12.4 % (11.8-14.3)
[2023-05-25 11:14] LABS: Urine Epithelial Cast None Seen /hpf (<5)
[2023-05-25 11:30] LABS: Alanine Aminotransferase 18 U/L (7-40); Albumin 4.2 g/dL (3.2-4.8); Alkaline Phosphatase 83 U/L (46-116); Anion Gap 3 (5-15); Aspartate Aminotransferase 15 U/L (13-40); BUN/Creatinine Ratio 15.7 (10.0-20.0); Bilirubin, Total 0.5 mg/dL (0.2-1.0); Blood Urea Nitrogen 17 mg/dL (9-23); Calcium 9.8 mg/dL (8.5-10.1); Carbon Dioxide 31 mmol/L (20-30); Chloride 94 mmol/L (98-107); Glucose 336 mg/dL (74-106); Potassium 4.8 mmol/L (3.5-5.1); Sodium 128 mmol/L (136-145); Total Protein 7.4 g/dL (5.7-8.2)
[2023-05-25 11:51] LABS: Urine Bacteria NONE SEEN /hpf (None Seen); Urine Blood Negative /uL (Negative); Urine Clarity Clear (Clear); Urine Color Yellow (Yellow); Urine Hyaline Cast FEW /lpf (0 - 2); Urine Protein, UAD Negative (Negative); Urine Specific Gravity 1.013 (1.001-1.035); Urine Urobilinogen Normal (Negative); Urine WBC 1 /hpf (0 - 5); Urine pH 5.5 (5.0-8.0)
[2023-05-25 12:00] LABS: Base Excess 2.2 mmol/L (-2.0-2.0)
[2023-05-25] MEDS ORDERED: NITROGLYCERIN 0.4 MG SL TAB SL PRN (14:15)
[2023-05-25] MEDS ORDERED: MORPHINE SULFATE INJ 2 MG/ml SYRG IV PRN ×2 (14:15)
[2023-05-25] MEDS ORDERED: ONDANSETRON HCL 4 MG/2 ML VIAL IV PRN (14:15)
[2023-05-25 14:25] VITALS: BP 151/51; PULSE 69; RESP 20; TEMP 97.6; O2SAT 95
[2023-05-25] MEDS ORDERED: DEXTROSE (50%) 50ML SYRG IV PRN (14:30)
[2023-05-25] MEDS: IOHEXOL 350 MG/ML 100ML IJ ONE (15:25)
[2023-05-25] MEDS: AZITHROMYCIN 500MG/ 250ML 250 ML IV SCH (16:21)
[2023-05-25] MEDS: methylPREDNISolone SOD SUCC 125 MG/2 ML VL IV SCH (16:21)
[2023-05-25] MEDS: ACCU-CHEK COMFORT CURVE STRIP VI SCH (16:31)
[2023-05-25 16:33] VITALS: O2SAT 98
[2023-05-25] MEDS: InsuLIN REG 1unit/0.01ml Soln (100units/ml) SC SCH (16:36)
[2023-05-25] MEDS: HYDROcodone-ACET 5/325MG TAB PO PRN (16:37)
[2023-05-25] MEDS: ALBUTEROL SULF 2.5 MG/0.5ML(0.5%) NEB SOLN NEB SCH (17:57)
[2023-05-25] MEDS: IPRATROPIUM BROM 0.5 MG/2.5ML INH SOL NEB SCH (17:57)
[2023-05-25 18:39] LABS: COVID19 ANTIGEN SOFIA FIA NEGATIVE (NEGATIVE)
[2023-05-25 18:44] LABS: Rapid Influenza A Negative (Negative); Rapid Influenza B Positive (Negative)
[2023-05-25 19:35] VITALS: PULSE 99; RESP 16; O2SAT 93
[2023-05-25] MEDS: ASCORBIC ACID 500 MG TAB PO SCH (22:32)
[2023-05-25] MEDS: InsuLIN REG 1unit/0.01ml Soln (100units/ml) SC ONE (22:47)
[2023-05-26] VITALS (17 sets, daily range): BP systolic 125–136; BP diastolic 54–66; PULSE 79–113; RESP 16–24; TEMP 97.8–98.3; O2SAT 94–99
[2023-05-26] MEDS: InsuLIN REG 1unit/0.01ml Soln (100units/ml) SC SCH ×2 (06:49→21:59)
[2023-05-26] MEDS ORDERED: NIFE1TAB31 PO (10:07)
[2023-05-26] MEDS: PANTOPRAZOLE 40 MG TAB PO SCH (10:08)
[2023-05-26] MEDS: ENOXAPARIN SOD 40 MG/0.4 ML SYRINGE SC SCH (10:08)
[2023-05-26] MEDS ORDERED: INSUINJ37 SC (10:11)
[2023-05-26] MEDS ORDERED: INSU100I28 SC ×2 (10:11)
[2023-05-26] MEDS ORDERED: SENN-105 PO (10:12)
[2023-05-26] MEDS: OSELTAMIVIR 75 MG CAP PO SCH (17:19)
[2023-05-26] MEDS: ACETAMINOPHEN 325 MG TAB PO PRN (20:31)
[2023-05-26] MEDS: INSULIN LANTUS (GLARGINE) 1 /0.01ml (100units/ml) SC SCH (21:58)
[2023-05-26] MEDS: methylPREDNISolone SOD SUCC 125 MG/2 ML VL IV SCH (22:01)
[2023-05-27] VITALS (18 sets, daily range): BP systolic 133–155; BP diastolic 57–80; PULSE 71–105; RESP 18–20; TEMP 96.8–98.4; O2SAT 91–100
[2023-05-27] MEDS: traZODone HCL 50 MG TAB PO PRN (22:11)
[2023-05-28] VITALS (17 sets, daily range): BP systolic 121–155; BP diastolic 52–77; PULSE 66–96; RESP 16–20; TEMP 97.8–98; O2SAT 90–100
[2023-05-28 12:43] LABS: Anion Gap 6 (5-15); Carbon Dioxide 26 mmol/L (20-30); Chloride 96 mmol/L (98-107); Potassium 4.7 mmol/L (3.5-5.1); Sodium 128 mmol/L (136-145)
[2023-05-28 12:44] LABS: Calcium 9.3 mg/dL (8.5-10.1)
[2023-05-28 12:49] LABS: BUN/Creatinine Ratio 28.7 (10.0-20.0); Blood Urea Nitrogen 25 mg/dL (9-23)
[2023-05-28 12:53] LABS: Glucose 476 mg/dL (74-106)
[2023-05-29] VITALS (17 sets, daily range): BP systolic 112–144; BP diastolic 50–82; PULSE 57–88; RESP 15–18; TEMP 97.6–98.6; O2SAT 94–100
[2023-05-29] MEDS: predniSONE 20 MG TAB PO SCH (10:40)
[2023-05-29] MEDS ORDERED: METH4PAK PO (16:50)
[2023-05-29] MEDS ORDERED: ALBU108A5 IN (16:50)
[2023-05-29] MEDS ORDERED: TAMIFLU PO (16:50)
[2023-05-30] VITALS (7 sets, daily range): BP systolic 141–152; BP diastolic 52–74; PULSE 56–76; RESP 15–20; TEMP 98.3; O2SAT 93–100
[2023-05-30] MEDS: AZITHROMYCIN 250 MG TAB PO SCH (09:39)
== END 2023-05-30 11:00 | disposition home or self-care (01) | DRG 203 ==
LOC: ER 08:37 → TELE-WESTW 14:09 → TELE 14:09 → TELE-WESTW 05-26 09:29
PROVIDERS: ADMIT Internal Medicine; ATTEND Internal Medicine
DX: J45.901 Unspecified asthma with (acute) exacerbation (principal); J10.1 Influenza due to other identified influenza virus with other respiratory manifestations; E66.9 Obesity, unspecified; E78.5 Hyperlipidemia, unspecified; R79.1 Abnormal coagulation profile; I10 Essential (primary) hypertension; E11.65 Type 2 diabetes mellitus with hyperglycemia; Z20.822 Contact with and (suspected) exposure to COVID-19; R79.89 Other specified abnormal findings of blood chemistry; Z68.35 Body mass index [BMI] 35.0-35.9, adult; Z79.4 Long term (current) use of insulin
CPT/HCPCS: 36415; 36600; 71045; 71275; 80048; 80053; 81001; 82805; 82962; 83036; 83880; 84484; 85025; 85379; 87426; 87804; 93005; 94640; G0378; J1815

== ENCOUNTER 2023-08-30 18:36 | Emergency (ER) | payer OTHER ==
[~2023-08-30] VITALS: Ht 157.5 cm; Wt 84.6 kg
[~2023-08-30 18:36] MED LIST changes: -ACET1CAP14 PO; -CEFD300C2 PO; -CELE100C82 PO; -CEPH500C PO; -GABA-1250 PO; +INSU100I28 SC; +INSUINJ37 SC; -LEVO750T8 PO; +LOSA-534 PO; -LOSA50TA46 PO; +METH4PAK PO; +NIFE1TAB31 PO; -PRED20TA2 PO; -PROM1SOL4 PO; -PROM2SYP2 PO; +SENN-105 PO; +TAMIFLU PO; -TRIATAB3 PO; -[UNRECOGNIZED DRUG - CODE] PO
[2023-08-30 18:42] VITALS: BP 113/44; PULSE 82; RESP 22; TEMP 97; O2SAT 95
[2023-08-30] MEDS ORDERED: ACET500T58 PO (22:28)
[2023-08-30] MEDS ORDERED: PRED10TA PO (22:28)
[2023-08-30] MEDS ORDERED: AMOX875T4 PO (22:28)
[2023-08-30] MEDS: methylPREDNISolone SOD SUCC 125 MG/2 ML VL IM ONE (22:47)
[2023-08-30] MEDS: cefTRIAXone SOD 1,000 MG VL IM ONE (22:47)
== END 2023-08-30 22:53 | disposition home or self-care (01) ==
LOC: ER 18:36
DX: J20.9 Acute bronchitis, unspecified (principal); E11.9 Type 2 diabetes mellitus without complications; I10 Essential (primary) hypertension; E78.5 Hyperlipidemia, unspecified; Z90.49 Acquired absence of other specified parts of digestive tract; Z98.51 Tubal ligation status
CPT/HCPCS: 71045; 96372; 99284; J0696; J2930

== ENCOUNTER 2023-09-22 13:35 | Emergency (ER) | payer OTHER ==
[~2023-09-22 13:35] MED LIST changes: +ACET500T58 PO; +AMOX875T4 PO; +PRED10TA PO
[2023-09-22 15:02] LABS: Urine Bacteria None Seen /hpf (None Seen)
[2023-09-22 15:12] LABS: Basophils # (auto) 0.1 10 ^3/uL (0-0.2); Basophils % (auto) 0.7 % (0.0-2.0); Eosinophils # (auto) 0.2 10 ^3/uL (0-0.8); Eosinophils % (auto) 2.4 % (0.0-7.0); Hemoglobin 12.6 g/dL (12.2-16.2); Lymphocytes % (auto) 20.9 % (10.0-50.0); Mean Corpuscular Hemoglobin 30.8 pg (28.0-32.0); Mean Corpuscular Volume 90.5 fL (80.0-100.0); Monocytes # (auto) 0.6 10 ^3/uL (0-1.3); Monocytes % (auto) 6.8 % (0.0-12.0); Neutrophils # (auto) 6.5 10 ^3/uL (1.6-8.6); Neutrophils % (auto) 69.2 % (37.0-80.0); Nucleated Red Blood Cells % 0.1 %; Red Blood Cells 4.09 10^6/uL (4.0-5.20); Red Cell Distribution Width 12.8 % (11.8-14.3); White Blood Cell 9.4 10^3/uL (4.4-10.8)
[2023-09-22 15:23] LABS: Urine Blood Negative /uL (Negative); Urine Clarity Clear (Clear); Urine Color Light-Yellow (Yellow); Urine Protein, UAD Negative (Negative); Urine Specific Gravity 1.015 (1.001-1.035); Urine Urobilinogen Normal (Negative); Urine WBC 1 /hpf (0 - 5); Urine pH 5.5 (5.0-9.0)
[2023-09-22 15:23] LABS: Chloride 90 mmol/L (98-107); Potassium 4.7 mmol/L (3.5-5.1); Sodium 123 mmol/L (136-145)
[2023-09-22 15:24] LABS: Anion Gap 6 (5-15); Carbon Dioxide 27 mmol/L (20-30)
[2023-09-22 15:25] LABS: Calcium 9.5 mg/dL (8.7-10.4)
[2023-09-22 15:29] LABS: BUN/Creatinine Ratio 24.4 (10.0-20.0); Blood Urea Nitrogen 21 mg/dL (9-23); Glucose 151 mg/dL (74-106)
[2023-09-22 17:45] VITALS: BP 135/55; RESP 18; TEMP 98.4; O2SAT 96
[2023-09-22] MEDS: MECLIZINE HCL 25 MG TAB PO ONE (17:52)
[2023-09-22 19:23] VITALS: PULSE 68
== END 2023-09-22 19:36 | disposition home or self-care (01) ==
LOC: ER 13:35
DX: R42 Dizziness and giddiness (principal); I10 Essential (primary) hypertension; E11.9 Type 2 diabetes mellitus without complications; E78.5 Hyperlipidemia, unspecified; Z98.890 Other specified postprocedural states
CPT/HCPCS: 36415; 70450; 80048; 81001; 85025; 93005; 99284; J8597

== ENCOUNTER 2024-02-21 13:46 | Emergency (ER) | payer OTHER ==
[~2024-02-21] VITALS: Ht 157.5 cm; Wt 80.0 kg
[2024-02-21 14:32] VITALS: BP 153/57; PULSE 81; RESP 16; TEMP 98.7; O2SAT 95
[2024-02-21] MEDS ORDERED: CEPH500C PO (14:37)
[2024-02-21] MEDS: LIDOCAINE 1% HCL (LOCAL ANESTH.) INJ 20ML MDV ID ONE (14:45)
[2024-02-21] MEDS: cefTRIAXone SOD 1,000 MG VL IM ONE (14:45)
== END 2024-02-21 14:52 | disposition home or self-care (01) ==
LOC: ER 13:46
DX: L03.032 Cellulitis of left toe (principal); I10 Essential (primary) hypertension; E11.9 Type 2 diabetes mellitus without complications; E78.00 Pure hypercholesterolemia, unspecified; Z79.82 Long term (current) use of aspirin; Z79.84 Long term (current) use of oral hypoglycemic drugs; Z90.49 Acquired absence of other specified parts of digestive tract; Z98.51 Tubal ligation status; Z79.899 Other long term (current) drug therapy
CPT/HCPCS: 96372; 99283; J0696; J2003

== ENCOUNTER 2024-07-31 12:14 | Emergency (ER) | payer OTHER ==
[~2024-07-31] VITALS: Ht 167.6 cm; Wt 80.3 kg
[~2024-07-31 12:14] MED LIST changes: +CEPH500C PO
--- NOTE | 2024-07-31 13:33 | ED.PDOC ---
History of Present Illness(SKN HPI Comments 69 y/o F, with PMHX of DM, HTN, and HLD presents to the ED for CC of wound check. Patient states, that she has a non-healing left foot first digit, diabetic foot wound x5 months. Patient relays, that she regularly follows up with her retirement officer and was prescribed an antibiotic for symptoms x3 months ago. Patient comments on having a appointment with her PCP until September 09, 2024 however, symptoms have worsened and feels that she cannot wait that long to be seen. Patient has visible swelling and erythema to the area complains of current 10/10 pain. No other symptoms or modifiers presents at this time. Chief Complaint: Wound Check Time Seen by MD: 13:00 Primary Care Provider: carter History of Present Illness: Nurses Notes, Medications, Allergies Allergies: Coded Allergies: NO KNOWN ALLERGIES (Unverified , 01/17/21) Home Meds Active Scripts Clindamycin Hcl (Clindamycin Hcl) 300 Mg Cap, 1 CAP PO TID for 7 Days, #21 CAP Prov:ANA MARIA BULL MD 07/31/24 Amoxicillin & Pot Clavulanate (Augmentin) 500 Mg Tab, 1 TAB PO BID for 7 Days, #14 TAB Prov:ANA MARIA BULL MD 07/31/24 Cephalexin Monohydrate (Cephalexin) 500 Mg Cap, 500 MG PO Q6HR for 7 Days, #28 MG Prov:TARYN CHU MD 02/21/24 Prednisone (Prednisone) 10 Mg Tab, 10 MG PO BID for 5 Days, #10 TAB 0 Refills Prov:KEO MERAZ 08/30/23 Amoxicillin & Pot Clavulanate (Amoxicillin/Potassium Cla) 875 Mg Tab, 1 TAB PO BID for 7 Days, #14 TAB 0 Refills Prov:KEO MERAZ 08/30/23 Acetaminophen (Acetaminophen) 500 Mg Tab, 500 MG PO Q4HPRN, #30 TAB 0 Refills Prov:KEO MERAZ 08/30/23 Methylprednisolone (Medrol Dosepak) 4 Mg Brandon, 4 MG PO UD, #21 TAB UAD Prov:KATHY PERAZA MD 05/29/23 Oseltamivir Phosphate (Tamiflu) 75 Mg Cap, 75 MG PO Q12HR for 1 Day, #2 CAP Prov:KATHY PERAZA MD 05/29/23 Albuterol Sulfate (Albuterol Sulfate Hfa) 108 Mcg/Act Aer, 2 PUFF IN Q4HPRN PRN, #1 INHALER 1 Refill Prov:KATHY PERAZA MD 05/29/23 Reported Medications Senna (Senna) 8.6 Mg Tab, 2 TAB PO DAILY 05/26/23 Insulin Aspart (Novolog) 100 Unit/Ml Inj, 30 UNITS SC HS DEPENDING ON NIGHT TIME BLOOD SUGAR. 05/26/23 Insulin Aspart (Novolog) 100 Unit/Ml Inj, 38 UNITS SC DAILY 05/26/23 Insulin Glargine (Lantus Solostar) 100 Unit/Ml Inj, 68 UNITS SC BID 05/26/23 Nifedipine (Nifedipine Er) 30 Mg Tab, 30 MG PO 05/26/23 Losartan Potassium (Losartan Potassium) 50 Mg Tab, 50 MG PO DAILY for 30 Days, MG 01/19/21 Metformin Hydrochloride (Metformin Hcl) 500 Mg Tab, 1000 MG PO IBID for 30 Days, MG 01/19/21 Trazodone Hcl (Trazodone Hcl) 50 Mg Tab, 50 MG PO HS, TAB 01/19/21 Aspirin (Aspir-Low) 81 Mg Tab, 81 MG PO DAILY for 30 Days, MG 01/19/21 Simvastatin (Simvastatin) 20 Mg Tab, 20 MG PO DAILY for 30 Days 01/19/21 Information Source: Patient Mode of Arrival: Ambulatory Severity: Moderate Timing: Months Duration: Since onset Prehospital treatment: None Location: Foot Mechanism: Preceding Wound Object: None Condition of Object: None Retained Foreign Body: Unknown Wound Type: Puncture History of: None Associated Signs and Symptoms: Redness, Swelling Past Medical History PAST MEDICAL HISTORY: DM, High Lipids, HTN Surgical History: Appendectomy, Tubal Ligation CONSULTING INTERN History: Denies all CONSULTING INTERN Hx Family History Family History: Unknown Social History Smoker: Non-Smoker Alcohol: Denies ETOH Use Drugs: Denies Drug Use Lives In: Home Constitutional: denies: chills, diaphoresis, fatigue, fever, malaise, sweats, weakness, others EENTM: denies: blurred vision, double vision, ear bleeding, ear discharge, ear drainage, ear pain, ear ringing, eye pain, eye redness, hearing loss, mouth pain, mouth swelling, nasal discharge, nose bleeding, nose congestion, nose pain, photophobia, tearing, throat pain, throat swelling, voice changes, others Respiratory: denies: cough, hemoptysis, orthopnea, SOB at rest, shortness of breath, SOB with excertion, stridor, wheezing, others Cardiovascular: denies: chest pain, dizzy spells, diaphoresis, Dyspnea on exertion, edema, irregular heart beat, left arm pain, lightheadedness, palpitations, PND, syncope, others Gastrointestinal: denies: abdomen distended, abdominal pain, blood streaked bowels, constipated, diarrhea, dysphagia, difficulty swallowing, hematemesis, melena, nausea, poor appetite, poor fluid intake, rectal bleeding, rectal pain, vomiting, others Genitourinary: denies: abnormal vagina bleeding, burning, dyspareunia, dysuria, flank pain, frequency, hematuria, incontinence, pain, , vagina discharge, urgency, others Neurological: denies: dizziness, fainting, headache, left sided numbness, left sided weakness, numbness, paresthesia, pre-existing deficit, right sided numbnes s, right sided weakness, seizure, speech problems, tingling, tremors, weakness, others Musculoskeletal: reports: others (LEFT FOOT PAIN); denies: back pain, gout, joint pain, joint swelling, muscle pain, muscle stiffness, neck pain Integumetry: denies: bruises, change in color, change in hair/nails, dryness, laceration, lesions, lumps, rash, wounds, others Allergic/Immunocompromised: denies: Difficulty Healing, Frequent Infections, Hives, Itching, others Hematologic/Lymphatic: denies: anemia, blood clots, easy bleeding, easy bruising, swollen glands, others Endocrine: denies: excessive hunger, excessive sweating, excessive thirst, excessive urination, flushing, intolerance to cold, intolerance to heat, unexplained weight gain, unexplained weight loss, others Psychiatric: denies: anxiety, bipolar disorder, depression, hopeless, panic disorder, schizophrenia, sleepless, suicidal, others All Other Systems: Reviewed and Negative Physical Exam General Appearance: Moderate Distress HEENT: Normal ENT Inspection, Pharynx Normal, TMs Normal Neck: Full Range of Motion, Non-Tender, Normal, Normal Inspection Respiratory: Chest Non-Tender, Lungs Clear, No Accessory Muscle Use, No Respiratory Distress, Normal Breath Sounds Cardiovascular: No Edema, No JVD, No Murmur, No Gallop, Normal Peripheral Pulses, Regular Rate/Rhythm Breast Exam: Deferred Gastrointestinal: No Organomegaly, Non Tender, No Pulsatile Mass, Normal Bowel Sounds, Soft Genitalia: Deferred Pelvic: Deferred Rectal: Deferred Extremities: No calf tenderness, Normal capillary refill, Normal inspection, Normal range of motion, Non-tender, No pedal edema Musculoskeletal : Apperance: Normal Neurologic: Alert, order desk clerk II-XII nml as Tested, No Motor Deficits, Normal Affect, Normal Mood, No Sensory Deficits Cerebellar Function: Normal Reflexes: Normal Skin: Wounds (Left great toe) Peripheral Pulses: 3+ Radial (R), 3+ Radial (L) Lymphatic: No Adenopathy Was a procedure done? Was a procedure done?: No Differential Diagnosis (INTG) Differential Diagnosis: Cellulitis Differential Diagnosis: Osteomyelitis Differential Diagnosis: Cellulitis, Other (DIABETIC FOOT ULCER) X-Ray, Labs, Meds, VS Vital Signs Date Time Temp Pulse Resp B/P (MAP) Pulse Ox O2 Delivery O2 Flow Rate FiO2 07/31/24 12:35 98.0 70 19 104/41 (62) 98 98.0 Patient alert. Came in because of redness of the left great toe. Has been having this redness on and off for six months. Vitals stable. Answering questions. Spoke with [facility] physician. Have made an appointment for her to be seen at [facility] facility. No sign of sepsis. Was given prescription of Augmentin clindamycin antibiotic. Explained to the patient. Was told to follow up with her primary care physician. Was told to come back if there is any problem. Time of 1ST Reevaluation: 13:30 Reevaluation 1ST: Unchanged Patient Education/Counseling: Diagnosis, Treatment Family Education/Counseling: No Family Present Departure 1 Departure Time of Disposition: 14:54 Impression: Primary Impression: Cellulitis Qualified Codes: L03.116 - Cellulitis of left lower limb Disposition: 01 HOME / SELF CARE / HOMELESS Condition: Good e-Prescriptions Clindamycin Hcl (Clindamycin Hcl) 300 Mg Cap 1 CAP PO TID for 7 Days, #21 CAP Prov: ANA MARIA BULL MD 07/31/24 Amoxicillin & Pot Clavulanate (Augmentin) 500 Mg Tab 1 TAB PO BID for 7 Days, #14 TAB Prov: ANA MARIA BULL MD 07/31/24 Discharged With: Self Critical Care Note Critical Care Time?: No Stability Stability form required: No Heart Score Heart Score: Heart Score Response (Comments) Value History N/A 0 EKG N/A 0 Age N/A 0 Risk Factors N/A 0 Troponin N/A 0 Total 0 I personally scribed for ANA MARIA BULL MD ([email or web address]) on 07/31/24 at 13:33. Electronically submitted by Leticia Oscar ([email or web address]). ANA MARIA BULL MD Jul 31, 2024 13:33
[2024-07-31] MEDS ORDERED: CLIN1CAP70 PO (14:55)
[2024-07-31] MEDS ORDERED: AMOX500T86 PO (14:55)
[2024-07-31 15:04] VITALS: BP 109/45; PULSE 71; RESP 18; TEMP 97.8; O2SAT 95
== END 2024-07-31 15:04 | disposition home or self-care (01) ==
LOC: ER 12:19
DX: L03.116 Cellulitis of left lower limb (principal); E11.9 Type 2 diabetes mellitus without complications; I10 Essential (primary) hypertension; E78.5 Hyperlipidemia, unspecified; Z98.51 Tubal ligation status; Z90.49 Acquired absence of other specified parts of digestive tract; Z79.899 Other long term (current) drug therapy; Z79.82 Long term (current) use of aspirin; Z79.52 Long term (current) use of systemic steroids; Z79.4 Long term (current) use of insulin
CPT/HCPCS: 82947